=== PATIENT | male | born 1975 | race Caucasian/White ===

== ENCOUNTER 2021-07-21 08:49 | Emergency (ER) | payer OTHER ==
[~2021-07-21] VITALS: Ht 175.3 cm; Wt 91.9 kg
--- NOTE | 2021-07-21 09:09 | NUR ---
CALLED FOR TRIAGE, NO ANSWER
[2021-07-21 09:19] VITALS: BP 123/85
[2021-07-21] MEDS ORDERED: OMEP10CA5 PO (09:27)
[2021-07-21] MEDS ORDERED: PROPARACAINE OPHTH 0.5%, 15ML ONE (09:37)
[2021-07-21] MEDS ORDERED: FLUORESCEIN OPHTHALMIC 1 MG STRIP ONE (09:37)
--- NOTE | 2021-07-21 09:38 | NUR ---
PT AMBULATORY TO ROOM 20 W/ C/O R EYE PAIN AND IRRITATION STARTED HAVNG PT WAS WELDING AND A PIECE OF METAL GOT INTO PT'S R EYE. PT C/O BLURRY VISION. PT RESTING ON GURHUME. BHAVIK.
--- NOTE | 2021-07-21 10:36 | NUR ---
YELLOW SLIP SENT TO PHARMACY FOR MEDS PER JAN.
[2021-07-21] MEDS ORDERED: predniSOLONE OPHTH SUSP 1%, 5ML RIGHTEYE ONE (11:00)
[2021-07-21] MEDS ORDERED: CYCLOPENTOLATE OPHTH SOLN 1%, 15ML RIGHTEYE ONE (11:00)
== END 2021-07-21 12:34 | disposition home or self-care (01) ==
LOC: EDSEX 08:49 → ED 12:31
DX: H20.049 Secondary noninfectious iridocyclitis, unspecified eye (principal)
CPT/HCPCS: 99283; 99285